=== PATIENT | male | born 1950 | race Caucasian/White ===

== ENCOUNTER → 2016-11-24 | Outpatient (CLI) | payer MEDICARE ==
[~2016-11-24] MED LIST: ASPIRIN LO-DOSE81 MG PO; COREG 3.1253.125 MG PO; COUMADIN ** IA5 MG PO; LASIX20 MG PO; ZOCOR20 MG PO
== END | disposition disaster alternative care site (69) ==
LOC: LGSMG 15:02
DX: R06.02 Shortness of breath (principal); R60.0 Localized edema; R53.83 Other fatigue

== ENCOUNTER → 2016-11-24 | Outpatient (CLI) | payer MEDICARE ==
--- NOTE | ~2016-11-24 | ECHO ---
Transthoracic Echocardiography Report (TTE) Demographics Patient Name FABIOLA SCHAEFFER Date of Study 11/24/2016 Patient Number [id number] Visit Number [id number] Date of 1950 Room Number Accession Number [id number] Gender Male Age 66 year(s) Referring Rocky Davis MD Track Laying Equipment Operator Jessica Jordan RVT Physician Physician Interpreting Adalgisa Lopez Track Oiler Physician Supervising Ordering Physician Rocky Davis MD, MD/MLP Nurse Stress Record Changer Assembler Conclusions Contractility Score Summary At rest the following contractility abnormalities were noted: Hypokinesis of the Mid anterior, the Mid ayo-septal, the Mid infero-septal, the Mid infero-lateral, the Basal infero-lateral, the Basal ayo-septal, the Basal infero-septal, the Basal anterior, the Basal inferior and the Basal ayo-lateral segments; Akinesis of the Mid ayo-lateral, the Mid inferior, the Apical inferior, the Apical septal, the Apical lateral, the Apical anterior and the Apical cap segments. Summary The estimated left ventricular ejection fraction is 20-25%. The left ventricle is moderately dilated . Echodensity is noted in LV apex consistent with LV apical thrombus. Moderately dilated right ventricle. Mildly reduced right ventricular function. Device lead noted in the right ventricle. Moderate biatrial enlargement IVC measures 2.5 cm with <50% inspiratory collapse. Mild mitral regurgitation by color Doppler. There is trivial aortic regurgitation by color Doppler. Mild tricuspid regurgitation by color Doppler. There is severe pulmonary hypertension. The estimated pulmonary pressure (RVSP) is [address] Hidalgo of the echo findings Procedure Type of Study TTE procedure:2D Echocardiogram, M-Mode, Doppler , Color Doppler. Procedure Date Date: 11/24/2016 Start: 04:22 PM Study Location: Echo Lab Technical Quality: Adequate visualization Indications:Dyspnea/SOB. Appropriate Use Criteria: 9 Patient Status: Routine HR: 130 bpm M-Mode/2D Measurements LV Diastolic Dimension: 6.48 cm LV Systolic Dimension: 5.61 cm LV Septum Diastolic: 0.93 cm LV PW Diastolic: 1.05 cm AO Root Dimension: 3.1 cm Cardiac Output: 4.46 l/min AV Cusp Separation: 2.3 cm RV Diastolic Dimension: 3.97 cm LVOT: 2.1 cm LVOT VTI: 9.9 cm RV Base: 3.61 cm LV Stroke volume: 34.27 ml RV Length: 7.9 cm TAPSE: 1.21 cm TDI-S': 10.3 cm/s Doppler Measurements AV Peak Velocity: 1.09 m/s MV Peak E-Wave: 0.73 m/s AV Peak Gradient: 4.75 mmHg AV Mean Gradient: 3 mmHg MV P1/2t: 90 msec LVOT Peak Velocity: 0.55 m/s TR Velocity:3.2 m/s PV Peak Velocity: 0.93 m/s TR Gradient:40.96 mmHg PV Peak Gradient: 3.43 mmHg Estimated RAP:15 mmHg Estimated PASP: 55.96 mmHg Estimated RVSP: 56 mmHg E' Lateral Velocity: 0.11 m/s Findings Left Ventricle The left ventricle is moderately dilated . Diastolic function indeterminate due to patient's arrhythmia. 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 Right Ventricle Mildly dilated right ventricle. Mildly reduced right ventricular function. Device lead noted in the right ventricle. Left Atrium The left atrium is moderately dilated. Right Atrium The right atrium is moderately dilated. IVC measures 2.5 cm with no inspiratory collapse. Device lead seen in the right atrium. Mitral Valve Mild calcification of the mitral valve. Mild mitral regurgitation by color Doppler. Aortic Valve The aortic valve is mildly sclerotic. There is trivial aortic regurgitation by color Doppler. Tricuspid Valve Mild tricuspid regurgitation by color Doppler. There is severe pulmonary hypertension. The estimated pulmonary pressure (RVSP) is 56 mmHg. Pulmonic Valve Trivial pulmonic valve regurgitation by color Doppler. Pericardial Effusion No evidence of pericardial effusion. Miscellaneous Visualized portions of the aortic root and ascending aorta appear normal in size. Pleural Effusion No evidence of pleural effusion. Contractility Score LV regional wall motion:(0-Non visualized 1-Normal 2-Hypokinesis 3-Akinesis 4-Dyskinesis 5-Aneurysm) Signature dtt: DARIO DIMAS dtd: 11/24/16 1622 Physician Self Edit
== END | disposition disaster alternative care site (69) ==
LOC: GCAR 15:58
DX: I25.10 Atherosclerotic heart disease of native coronary artery without angina pectoris (principal); I35.1 Nonrheumatic aortic (valve) insufficiency; I07.1 Rheumatic tricuspid insufficiency; I34.0 Nonrheumatic mitral (valve) insufficiency; I27.2 Other secondary pulmonary hypertension; R53.83 Other fatigue; R60.0 Localized edema; R06.02 Shortness of breath

== ENCOUNTER → 2017-01-17 | Outpatient (CLI) | payer MEDICARE | END | disposition disaster alternative care site (69) | LOC: LGSMG 12:38 | DX: N18.3 Chronic kidney disease, stage 3 (moderate) (principal); I10 Essential (primary) hypertension ==

== ENCOUNTER → 2017-03-09 | Day surgery (SDC) | payer MEDICARE ==
[~2017-03-09] VITALS: Ht 190.5 cm; Wt 128.9 kg
[2017-03-09 08:47] LABS: INR - (THERAPEUTIC) 1.06 (0.92-1.07); PROTIME 11.1 SECONDS (9.8-11.4)
== END | disposition disaster alternative care site (69) ==
LOC: GPOC 03-07 15:00 → GEND 07:32 → GPOC 15:00
PROVIDERS: Internal Medicine
PROC: 0DBH8ZX Excision of Cecum, Via Natural or Artificial Opening Endoscopic, Diagnostic (ICD-10-PCS; principal; 2017-03-09)
PROC: 0DBN8ZX Excision of Sigmoid Colon, Via Natural or Artificial Opening Endoscopic, Diagnostic (ICD-10-PCS; 2017-03-09)
PROC: 0DBK8ZX Excision of Ascending Colon, Via Natural or Artificial Opening Endoscopic, Diagnostic (ICD-10-PCS; 2017-03-09)
DX: Z12.11 Encounter for screening for malignant neoplasm of colon (principal); D12.2 Benign neoplasm of ascending colon; D12.5 Benign neoplasm of sigmoid colon; D12.0 Benign neoplasm of cecum; D64.9 Anemia, unspecified; K57.30 Diverticulosis of large intestine without perforation or abscess without bleeding; I25.10 Atherosclerotic heart disease of native coronary artery without angina pectoris; I25.2 Old myocardial infarction; E78.5 Hyperlipidemia, unspecified; I13.0 Hypertensive heart and chronic kidney disease with heart failure and stage 1 through stage 4 chronic kidney disease, or unspecified chronic kidney disease; N18.3 Chronic kidney disease, stage 3 (moderate); I50.40 Unspecified combined systolic (congestive) and diastolic (congestive) heart failure; I25.5 Ischemic cardiomyopathy; E78.00 Pure hypercholesterolemia, unspecified; Z98.890 Other specified postprocedural states; Z79.82 Long term (current) use of aspirin; Z79.899 Other long term (current) drug therapy; Z88.8 Allergy status to other drugs, medicaments and biological substances
CPT/HCPCS: J1610; J2001; J7030